=== PATIENT | female | born 1975 | race African-American/Black ===

== ENCOUNTER 2018-04-04 17:38 | Emergency (ER) | payer OTHER ==
[~2018-04-04] VITALS: Ht 162.6 cm; Wt 83.0 kg
[2018-04-04] MEDS ORDERED: PHENTERMINE H37.5 M1 PO (18:43)
[2018-04-04] MEDS ORDERED: NORCO 5-325 TA1 EACH PO (18:54)
[2018-04-04 19:55] VITALS: BP 130/83
== END 2018-04-04 19:55 | disposition home or self-care (01) ==
LOC: ER 17:38
DX: S90.32XA Contusion of left foot, initial encounter (principal); W20.8XXA Other cause of strike by thrown, projected or falling object, initial encounter; Y93.89 Activity, other specified; Y92.89 Other specified places as the place of occurrence of the external cause; Y99.8 Other external cause status